=== PATIENT | female | born 1975 | race Caucasian/White ===

== ENCOUNTER 2020-12-24 23:25 | Emergency (ER) | payer MEDICAID, OTHER ==
[2020-12-25 00:22] LABS: CARBON DIOXIDE,CO2 24.4 mmol/L (21.0-32.0); POTASSIUM,K 3.8 mmol/L (3.5-5.1)
[2020-12-25] MEDS ORDERED: Ketorolac 15 MG/ML SDV IM ONE (00:42)
[2020-12-25] MEDS ORDERED: Ketorolac 15 MG/ML SDV IVPUSH STA (00:43)
[2020-12-25] MEDS ORDERED: Lactated Ringers 1,000 ML IV SCH (00:45)
--- NOTE | 2020-12-25 01:55 | CT ---
INDICATION: Left flank pain. Evaluate for nephrolithiasis COMPARISON: None available TECHNIQUE: CT examination of the abdomen and pelvis was performed without contrast enhancement using 2.5 mm thick axial sections from the lung bases through the pubic symphysis. Oral contrast was not administered. Please note that all CT scans at this facility use dose modulation, iterative reconstruction, and/or weight-based dosing when appropriate to reduce radiation dose to as low as reasonably achievable. FINDINGS: In the abdomen, the unenhanced liver, spleen, pancreas, and adrenals are normal in appearance. There is a 3.2 centimeter cyst in the lower pole of the left kidney. The unenhanced kidneys are otherwise normal in appearance. There is no sign of any renal or ureteral calculi. There is no sign of hydronephrosis or hydroureter. The gallbladder is normal in appearance. The abdominal aorta is normal in caliber with no sign of dilatation. There is no sign of retroperitoneal mass or adenopathy. The stomach, loops of small bowel, and right colon in the abdomen are normal in appearance. There is minimal diverticulosis of the descending colon with no sign of diverticulitis. There is a small fat containing periumbilical hernia. In the pelvis, the appendix is normal in appearance with no sign of inflammatory process. There is mild sigmoid diverticulosis without evidence of diverticulitis. The loops of small bowel and colon in the pelvis are otherwise normal in appearance. There is a moderate-sized fibroid projecting superiorly from the posterior uterine fundus measuring 6.2 x 5.5 x 6.1 centimeters. The rest of the uterus and adnexal regions are normal in appearance. The urinary bladder is normal in appearance. There is no sign of pelvic or inguinal mass or adenopathy. There is no sign of free air or free fluid in the abdomen or pelvis. The lung bases are clear. The osseous structures are normal in appearance for the patient`s age. IMPRESSION: Nothing seen to explain the patient`s left flank pain. No sign left urinary system obstruction or calculi. No sign of diverticulitis of the left colon. CT of the abdomen shows a 3.2 centimeters cyst in the lower pole of left kidney of no clinical concern. Minimal diverticulosis of the descending colon with no sign of diverticulitis. CT of the pelvis shows mild diverticulosis of the proximal sigmoid colon with no sign of diverticulitis. 6.2 centimeter fibroid projecting superiorly from the uterine fundus. Please note that all CT scans at this facility use dose modulation, iterative reconstruction, and/or weight-based dosing when appropriate to reduce radiation dose to as low as reasonably achievable. Dictated by Bro Doyle MD @ 12/25/2020 1:53:[address] Bro Doyle @ Dec 25 2020 1:53AM
--- NOTE | 2020-12-25 02:32 | EDM.PDOC ---
ED HPI GENERAL MEDICAL PROBLEM - General Chief Complaint: Genitourinary Problem Stated Complaint: KIDNEY PROBLEMS Time Seen by Provider: 12/24/20 23:45 - History of Present Illness INITIAL COMMENTS - FREE TEXT/NARRATIVE: CHIEF COMPLAINT(S): Left flank pain HISTORY OF PRESENT ILLNESS: This is a 45-year-old woman with a reported past medical history of left kidney cyst and left ovarian cyst who reportedly gets yearly MRIs of her left kidney for concern for left kidney cancer [place] comes to the emergency department with a chief complaint of left flank pain. The patient states that for off and on for 2 days she has been experiencing left flank pain with radiation into her left lower quadrant. She states that she does feel nauseous but denies any vomiting. She denies any dysuria, hematuria, vaginal bleeding, vaginal discharge. She denies any fever or chills. She denies any chest pain or shortness of breath. She rates her pain as 10 out of 10 and aching. She denies any aggravating or relieving factors. She states that she has not yet tried anything for pain. She is mainly concerned because she "may have cancer in her left kidney." REVIEW OF SYSTEMS: Constitutional: Denies fever, chills. Eyes: Denies eye pain Ears, Nose, Mouth, & Throat: Denies earache Cardiovascular: Denies chest pain Respiratory: Denies shortness of breath Gastrointestinal: Positive for left lower quadrant abdominal pain. Denies nausea, vomiting, diarrhea, hematochezia, hematemesis, bilious emesis Genitourinary: Positive for left flank pain. Denies hematuria, dysuria, vaginal bleeding, vaginal discharge Skin:Denies a rash MSK: Denies joint pain Neurological: Denies blurred vision Psychiatric: Denies depression PAST MEDICAL HISTORY: As per history of present illness and as reviewed below otherwise noncontributory. SURGICAL HISTORY: As per history of present illness and as reviewed below otherwise noncontributory. SOCIAL HISTORY: As per history of present illness and as reviewed below otherwise noncontributory. FAMILY HISTORY: As per history of present illness and as reviewed below otherwise noncontributory. EXAMINATION OF ORGAN SYSTEMS/BODY AREAS: Constitutional: Blood pressure is 135/98, heart rate 102, respiratory rate 18 with an oxygen saturation of 95% on room air. Temperature 36.3 General: Overall well-appearing woman who is in no acute distress Psychiatric: Appropriate mood and affect. Eyes: No scleral icterus or conjunctival erythema ENMT: Moist mucous membranes. No pharyngeal erythema Cardiovascular: Regular, rate, and rhythm. No gallops, murmurs, or rubs. Bilateral upper extremity pulses symmetric and intact. No peripheral edema. No JVD. Respiratory: Lungs clear to auscultation bilaterally. No wheezes, rales, or rhonchi. Gastrointestinal: Soft, non-tender, non-distended. Normoactive bowel sounds mild tenderness to palpation in the left lower quadrant. No rebound or guarding. Negative Ross's and McBurney's. Genitourinary: No suprapubic tenderness minimal left flank tenderness. Musculoskeletal: Normal range of motion. Skin: No lesions or abrasions. Neurological: Alert, GCS 15 MEDICAL DECISION MAKING AND COURSE IN THE ED WITH INTERPRETATION/REVIEW OF DIAGNOSTIC STUDIES: This is a 45-year-old woman with a reported past medical history of left kidney cyst with possible renal cell cancer who [place] and a left possible ovarian cyst who comes to the emergency department with 2 days of intermittent left flank pain with radiation to left lower quadrant who has stable vital signs. At this time we will provide the patient with Toradol and lactated Ringer's. At this time differential does include diverticulitis, nephrolithiasis, cystitis, pyelonephritis. Will obtain CBC, CMP, hCG and urinalysis. Will obtain an abdomen pelvis without contrast for further evaluation. Laboratory analysis was unremarkable. Urinalysis was negative except for ketones. The radiological images were viewed by myself along with reading the report from the radiologist. CT abdomen pelvis without contrast reveals a 3.2 cm cyst in the lower pole of the left kidney. No renal or ureteral calculi. No hydronephrosis or hydroureter. Mild diverticulosis without diverticulitis. There is a moderately sized fibroid in the uterus. After imaging I discussed the results with the patient. I encouraged the patient to follow-up with her lab rn and her primary care physician. She is to return for any new or worsening symptoms. She was amenable discharge at this time and had no further questions. DISPOSITION: The patient was discharged home in stable condition. The patient will follow up with primary care physician in 3 to 5 days CONDITION: Fair PROCEDURES: None FINAL IMPRESSION(S)/DIAGNOSES: 1. Acute left flank pain 2. Acute left lower quadrant abdominal pain Cesario Schumacher M.D. left flank Pain Score (Numeric/FACES): 10 - Related Data Allergies Allergy/AdvReac Type Severity Reaction Status Date / Time No Known Allergies Allergy Verified 12/24/20 23:42 Home Meds: Home Meds Venlafaxine [Effexor] 75 mg PO DAILY 12/24/20 [History] hydrOXYzine HCL [Hydroxyzine HCl] 25 mg PO TID 12/24/20 [History] Apixaban [Eliquis] 5 mg PO BID 12/25/20 [History] Folic Acid 1 mg PO DAILY 12/25/20 [History] Metoprolol Succinate [Toprol XL 100mg] 100 mg PO DAILY 12/25/20 [History] Prazosin [Minpress] 1 mg PO DAILY 12/25/20 [History] Past Medical History HEENT History: Reports: None Cardiovascular History: Reports: Blood Clots/VTE/DVT, Hypertension Respiratory History: Reports: None Gastrointestinal History: Reports: Other (See Below) Other Gastrointestinal History: Liver Issues Genitourinary History: Reports: None NETWORK ANALYST History: Reports: Other (See Below) Other NETWORK ANALYST History: Ovarian Cyst Musculoskeletal History: Reports: None Neurological History: Reports: None Psychiatric History: Reports: Anxiety, Depression Endocrine/Metabolic History: Reports: None Insulin Pump Model and Landfill Gas Technician: None Hematologic History: Reports: None Immunologic History: Reports: None Oncologic (Cancer) History: Reports: None Dermatologic History: Reports: None - Infectious Disease History Infectious Disease History: Reports: None - Past Surgical History Musculoskeletal Surgical History: Reports: Other (See Below) Other Musculoskeletal Surgeries/Procedures:: leg surgery Social & Family History - Recreational Drug Use Recreational Drug Use: No ED ROS GENERAL - Review of Systems Review Of Systems: See Below ED EXAM, GENERAL - Physical Exam Exam: See Below Course - Vital Signs Last Recorded V/S: Last Vital Signs Temp 36.3 C 12/24/20 23:40 Pulse 102 H 12/24/20 23:40 Resp 18 12/24/20 23:40 BP 135/98 H 12/24/20 23:40 Pulse Ox 95 12/24/20 23:40 - Orders/Labs/Meds Labs: Laboratory Tests 12/24/20 12/24/20 12/24/20 Range/Units 00:00 00:00 23:45 WBC 8.92 (4.0-11.0) K/uL RBC 5.44 (4.30-5.90) M/uL Hgb 14.5 (12.0-16.0) g/dL Hct 44.0 (36.0-46.0) % MCV 80.9 (80.0-98.0) fL MCH 26.7 L (27.0-32.0) pg MCHC 33.0 (31.0-37.0) g/dL RDW Std Deviation 43.0 (28.0-62.0) fl RDW Coeff of Hector 15 (11.0-15.0) % Plt Count 381 (150-400) K/uL MPV 10.90 (7.40-12.00) fL Neut % (Auto) 50.8 (48.0-80.0) % Lymph % (Auto) 36.4 (16.0-40.0) % [place] % (Auto) 7.1 (0.0-15.0) % Eos % (Auto) 5.4 (0.0-7.0) % Baso % (Auto) 0.3 (0.0-1.5) % Neut # (Auto) 4.5 (1.4-5.7) K/uL Lymph # (Auto) 3.3 H (0.6-2.4) K/uL [place] # (Auto) 0.6 (0.0-0.8) K/uL Eos # (Auto) 0.5 (0.0-0.7) K/uL Baso # (Auto) 0.0 (0.0-0.1) K/uL Nucleated RBC % 0.0 /100WBC Nucleated RBCs # 0 K/uL Sodium 143 (136-145) mmol/L Potassium 3.8 (3.5-5.1) mmol/L Chloride 105 (98-107) mmol/L Carbon Dioxide 24.4 (21.0-32.0) mmol/L BUN 15 (7.0-18.0) mg/dL Creatinine 1.0 (0.6-1.0) mg/dL Est Cr Clr Drug Dosing 57.53 mL/min Estimated GFR (MDRD) 59.4 ml/min Glucose 106 (74-106) mg/dL Calcium 9.6 (8.5-10.1) mg/dL Total Bilirubin 0.2 (0.2-1.0) mg/dL AST 22 (15-37) IU/L ALT 30 (14-63) IU/L Alkaline Phosphatase 95 (46-116) U/L Total Protein 8.0 (6.4-8.2) g/dL Albumin 4.0 (3.4-5.0) g/dL Globulin 4.0 (2.6-4.0) g/dL Albumin/Globulin Ratio 1.0 (0.9-1.6) Urine Color YELLOW Urine Appearance CLEAR Urine pH 5.5 (5.0-8.0) Ur Specific [place] >= 1.030 (1.001-1.035) Urine Protein NEGATIVE (NEGATIVE) mg/dL Urine Glucose (UA) NEGATIVE (NEGATIVE) mg/dL Urine Ketones TRACE H (NEGATIVE) mg/dL Urine Occult Blood NEGATIVE (NEGATIVE) Urine Nitrite NEGATIVE (NEGATIVE) Urine Bilirubin NEGATIVE (NEGATIVE) Urine Urobilinogen 0.2 (<2.0) EU/dL Ur Leukocyte Esterase NEGATIVE (NEGATIVE) Urine HCG, Qual (NEGATIVE) 12/24/20 Range/Units 23:45 WBC (4.0-11.0) K/uL RBC (4.30-5.90) M/uL Hgb (12.0-16.0) g/dL Hct (36.0-46.0) % MCV (80.0-98.0) fL MCH (27.0-32.0) pg MCHC (31.0-37.0) g/dL RDW Std Deviation (28.0-62.0) fl RDW Coeff of Hector (11.0-15.0) % Plt Count (150-400) K/uL MPV (7.40-12.00) fL Neut % (Auto) (48.0-80.0) % Lymph % (Auto) (16.0-40.0) % [place] % (Auto) (0.0-15.0) % Eos % (Auto) (0.0-7.0) % Baso % (Auto) (0.0-1.5) % Neut # (Auto) (1.4-5.7) K/uL Lymph # (Auto) (0.6-2.4) K/uL [place] # (Auto) (0.0-0.8) K/uL Eos # (Auto) (0.0-0.7) K/uL Baso # (Auto) (0.0-0.1) K/uL Nucleated RBC % /100WBC Nucleated RBCs # K/uL Sodium (136-145) mmol/L Potassium (3.5-5.1) mmol/L Chloride (98-107) mmol/L Carbon Dioxide (21.0-32.0) mmol/L BUN (7.0-18.0) mg/dL Creatinine (0.6-1.0) mg/dL Est Cr Clr Drug Dosing mL/min Estimated GFR (MDRD) ml/min Glucose (74-106) mg/dL Calcium (8.5-10.1) mg/dL Total Bilirubin (0.2-1.0) mg/dL AST (15-37) IU/L ALT (14-63) IU/L Alkaline Phosphatase (46-116) U/L Total Protein (6.4-8.2) g/dL Albumin (3.4-5.0) g/dL Globulin (2.6-4.0) g/dL Albumin/Globulin Ratio (0.9-1.6) Urine Color Urine Appearance Urine pH (5.0-8.0) Ur Specific [place] (1.001-1.035) Urine Protein (NEGATIVE) mg/dL Urine Glucose (UA) (NEGATIVE) mg/dL Urine Ketones (NEGATIVE) mg/dL Urine Occult Blood (NEGATIVE) Urine Nitrite (NEGATIVE) Urine Bilirubin (NEGATIVE) Urine Urobilinogen (<2.0) EU/dL Ur Leukocyte Esterase (NEGATIVE) Urine HCG, Qual NEGATIVE (NEGATIVE) Meds: Medications Discontinued Medications Generic Name Dose Route Start Last Admin Trade Name Freq PRN Reason Stop Dose Admin Lactated Ringer's 1,000 mls @ 999 mls/hr 12/25/20 00:45 12/25/20 00:52 Ringers, Lactated IV 999 mls/hr ASDIRECTED ROSALBA Administration Ketorolac Tromethamine 15 mg 12/25/20 00:42 12/25/20 00:44 Ketorolac 15 Mg/Ml Sdv IM 12/25/20 00:43 Not Given ONETIME ONE Ketorolac Tromethamine 15 mg 12/25/20 00:43 12/25/20 00:52 Ketorolac 15 Mg/Ml Sdv IVPUSH 12/25/20 00:44 15 mg NOW STA Administration Departure - Departure Time of Disposition: 02:29 Disposition: Home, Self-Care 01 Condition: Fair Clinical Impression: Flank pain - Discharge Information *PRESCRIPTION DRUG MONITORING PROGRAM REVIEWED*: No *COPY OF PRESCRIPTION DRUG MONITORING REPORT IN PATIENT MART: No Instructions: Uterine Fibroids, [id number], Abdominal Pain, Adult, [id number], Flank Pain, Adult, Diverticulosis Referrals: PCP,Not In Area [Primary Care Provider] - Forms: ED Department Discharge Additional Instructions: You were evaluated today on an emergent basis. At this time all of your labs and imaging were normal except for the cyst on your left kidney, the fibroid in your uterus, and diverticulosis in your intestine for which we did discuss these. It is uncertain as to what is causing your pain however I do recommend use of Tylenol and Motrin for pain relief. This could be secondary to muscular spasm versus strain. I do recommend that you do daily stretching and you may apply ice or heat to the area 20 minutes 4 times a day. It is important that you follow-up with primary care physician given your history and that you are now living here in [place]. Please make an appointment within the next 3 to 5 days. Please use: Tylenol 500-1000mg every 6 hours (DO NOT TAKE MORE THAN 4000mg in 1 day) Ibuprofen 400mg every 6 hours (Take with food as it can cause ulcers, GI upset) Example schedule: 8:00 AM (Tylenol 500-1000mg) 11:00 AM (Ibuprofen 400mg) 2:00 PM (Tylenol 500-1000mg) 5:00 PM (Ibuprofen 400mg) In addition to Tylenol and Motrin you may use over the counter creams such as Voltaren Cream or Lidocaine Cream (Lidoderm) as needed 4 times a day for symptomatic relief. Ice the area 20 minutes 4 times per day [facility] [address] [place] [id number] [id number] The patient is informed of any results of their evaluation and diagnostic workup and all questions are answered. They are given discharge instructions and return precautions. The patient is stable for discharge. The patient states they understand and agree with the plan and that they will return if their symptoms get worse or if they have any new concerns. The following information is given to patients seen in the emergency department who are being discharged to home. This information is to outline your options for follow-up care. We provide all patients seen in our emergency department with a follow-up referral. The need for follow-up, as well as the timing and circumstances, are variable depending upon the specifics of your emergency department visit. If you don't have a primary care physician on staff, we will provide you with a referral. We always advise you to contact your personal physician following an emergency department visit to inform them of the circumstance of the visit and for follow-up with them and/or the need for any referrals to a consulting specialist. The emergency department will also refer you to a specialist when appropriate. This referral assures that you have the opportunity for follow-up care with a specialist. All of these measure are taken in an effort to provide you with optimal care, which includes your follow-up. Under all circumstances we always encourage you to contact your private physician who remains a resource for coordinating your care. When calling for follow-up care, please make the office aware that this follow-up is from your recent emergency room visit. If for any reason you are refused follow-up, please contact the [facility] Emergency Department at and asked to speak to the emergency department charge nurse. Sepsis Event Note (ED) - Evaluation Sepsis Screening Result: No Definite Risk
== END 2020-12-25 02:42 | disposition home or self-care (01) ==
LOC: MW.ED 23:25
DX: R10.32 Left lower quadrant pain (principal); I10 Essential (primary) hypertension; Z79.01 Long term (current) use of anticoagulants; Z79.899 Other long term (current) drug therapy
CPT/HCPCS: 36415; 74176; 80053; 81003; 81025; 85025; 96374; 99284; J1885; J7120

== ENCOUNTER 2021-01-07 23:22 | Emergency (ER) | payer OTHER ==
[2021-01-08] MEDS ORDERED: Ketorolac 15 MG/ML SDV IM STA (00:17)
[2021-01-08] MEDS ORDERED: Lidocaine 5% 700 MG Patch TOP ONE (00:18)
[2021-01-08] MEDS ORDERED: Acetaminophen 325 MG Tab PO ONE (00:18)
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
== END 2021-01-08 00:45 | disposition home or self-care (01) ==
LOC: MW.ED 23:22
DX: R07.81 Pleurodynia (principal); F41.9 Anxiety disorder, unspecified; F32.9 Major depressive disorder, single episode, unspecified; I10 Essential (primary) hypertension; Z91.19 Patient's noncompliance with other medical treatment and regimen; Z86.718 Personal history of other venous thrombosis and embolism; Z87.891 Personal history of nicotine dependence; Z79.01 Long term (current) use of anticoagulants; Z79.899 Other long term (current) drug therapy
CPT/HCPCS: 96372; 99283; A9270; J1885